=== PATIENT | male | born 1975 ===

== ENCOUNTER 2018-07-15 15:15 | Emergency (ER) | payer OTHER ==
[2018-07-15 15:37] VITALS: BP 120/54
--- NOTE | 2018-07-15 15:57 | UC ---
Throat Pain/Nasal Arsenio HPI - HPI Summary HPI Summary: has been sick for 10-12 days, over past week, sinus pain has gotten worse, now facial pain, blowing dark mucous - History of Current Complaint Chief Complaint: UCGeneralIllness Stated Complaint: SINUS COMPLAINT Time Seen by Provider: 07/15/18 15:28 Hx Obtained From: Patient Onset/Duration: Gradual Onset Severity: Moderate Pain Intensity: 2 Associated Signs & Symptoms: Positive: Sinus Discomfort - Allergies/Home Medications Allergies/Adverse Reactions: Allergies Allergy/AdvReac Type Severity Reaction Status Date / Time No Known Allergies Allergy Verified 07/15/18 15:28 Home Medications: Home Medications Acetaminophen TAB* [Tylenol TAB*] 325 mg PO ONCE 07/15/18 [History Confirmed ] Pseudoephedrine HCL ER TAB* [Sudafed 12 Hour*] 120 mg PO ONCE 07/15/18 [History Confirmed 07/15/18] PMH/Surg Hx/FS Hx/Imm Hx Previously Healthy: Yes - Surgical History Surgical History: Yes Surgery Procedure, Year, and Place: deviated septum repair 2007 - Family History Known Family History: Positive: None Negative: Hypertension, Diabetes - Social History Occupation: Employed Full-time Lives: With Family Alcohol Use: Occasionally Substance Use Type: None Smoking Status (MU): Never Smoked Tobacco Review of Systems All Other Systems Reviewed And Are Negative: Yes Constitutional: Positive: Fever - intermittant Skin: Positive: Negative ENT: Positive: Sinus Congestion, Sinus Pain/Tenderness. Negative: Sore Throat Respiratory: Positive: Negative Cardiovascular: Positive: Negative Musculoskeletal: Positive: Negative Neurological: Positive: Negative Psychological: Positive: Negative Is Patient Immunocompromised?: No Physical Exam Triage Information Reviewed: Yes Appearance: Well-Appearing, No Pain Distress, Well-Nourished Vital Signs: Initial Vital Signs Temp 97.7 F 07/15/18 15:30 Pulse 72 07/15/18 15:30 Resp 16 07/15/18 15:30 BP 120/54 07/15/18 15:30 Pulse Ox 100 07/15/18 15:30 Vital Signs Reviewed: Yes Eyes: Positive: Conjunctiva Clear ENT: Positive: Pharyngeal erythema, Nasal congestion, Nasal drainage, Sinus tenderness Neck exam: Normal Neck: Positive: Supple, Nontender, No Lymphadenopathy Respiratory Exam: Normal Cardiovascular Exam: Normal Neurological Exam: Normal Psychological Exam: Normal Skin Exam: Normal Throat Pain/Nasal Course/Dx - Differential Dx/Diagnosis Differential Diagnosis/HQI/PQRI: Influenza, Sinusitis, URI Provider Diagnoses: sinusitis Discharge - Sign-Out/Discharge Documenting (check all that apply): Patient Departure All imaging exams completed and their final reports reviewed: No Studies - Discharge Plan Condition: Good Disposition: HOME Prescriptions: Cefdinir cap (NF) [Cefdinir 300 MG cap (NF)] 300 mg PO BID #20 cap Referrals: Miguel Keith MD [Primary Care Provider] - 3 Days (if no better ) Additional Instructions: drink plenty of fluids start antibiotic and take as prescribed return if worsening - Billing Disposition and Condition Condition: GOOD Disposition: Home - Attestation Statements Provider Attestation: I was available for consult. This patient was seen by the TRACIE. The patient was not presented to, seen by, or examined by me. -Esteban
== END 2018-07-15 16:30 | disposition home or self-care (01) ==
LOC: UCEAST 15:15
DX: J32.9 Chronic sinusitis, unspecified (principal)
CPT/HCPCS: 99212; G0463